=== PATIENT | male | born 1980 | race Two or more races ===

== ENCOUNTER 2023-06-12 21:04 | Emergency (ER) | payer MEDICAID, OTHER ==
[~2023-06-12] VITALS: Ht 165.1 cm; Wt 105.3 kg
[2023-06-12 21:15] VITALS: BP 174/109; PULSE 88; RESP 18; TEMP 98.1; O2SAT 98
[2023-06-12] MEDS ORDERED: IBUP-1455 PO (22:21)
[2023-06-12] MEDS ORDERED: CYCL-839 PO (22:21)
[2023-06-12] MEDS: IBUPROFEN 800 MG TAB PO ONE (22:22)
== END 2023-06-12 22:26 | disposition home or self-care (01) ==
LOC: ER 21:04
DX: R51.9 Headache, unspecified (principal); M54.2 Cervicalgia; M25.562 Pain in left knee; V43.52XA Car driver injured in collision with other type car in traffic accident, initial encounter; Y93.89 Activity, other specified; Y92.488 Other paved roadways as the place of occurrence of the external cause; Y99.8 Other external cause status